=== PATIENT | male | born 1995 | race Caucasian/White ===

== ENCOUNTER 2021-05-23 18:00 | Emergency (ER) | payer SELFPAY ==
[~2021-05-23] VITALS: Ht 182.9 cm; Wt 68.0 kg
[2021-05-23 18:38] VITALS: BP 109/55
[2021-05-23] MEDS ORDERED: NAPR-1009 PO (20:16)
--- NOTE | 2021-05-23 20:21 | NUR ---
PT WAS PROVIDED W/ L SHOULDER SLING. MEDICALLY STABLE FOR D/C. Patient discharged to home in stable condition. Written and verbal after care instructions given. Patient verbalizes understanding of instruction.
== END 2021-05-23 21:46 | disposition home or self-care (01) ==
LOC: ER 18:00
DX: M24.412 Recurrent dislocation, left shoulder (principal); S50.812A Abrasion of left forearm, initial encounter; V49.49XA Driver injured in collision with other motor vehicles in traffic accident, initial encounter; Y93.89 Activity, other specified; Y92.413 State road as the place of occurrence of the external cause; Y99.8 Other external cause status
CPT/HCPCS: 70450-TC; 73030-TC